=== PATIENT | male | born 1950 | race Two or more races ===

== ENCOUNTER 2018-04-27 07:51 | Inpatient (IN) | payer MEDICARE ==
[~2018-04-27] VITALS: Ht 170.2 cm; Wt 92.0 kg
[2018-04-27] MEDS ORDERED: ONDANSETRON 2MG/ML, 2ML ONE ×2 (08:27→17:44)
[2018-04-27] MEDS ORDERED: FAMOTIDINE 20 MG/2 ML ONE (08:27)
[2018-04-27] MEDS ORDERED: SODIUM CHLORIDE FLUSH 10ML SYR IVF ONE (08:30)
[2018-04-27] MEDS ORDERED: MAALOX/HYOSCYAMINE/LIDOCAINE 45 ML BTL ONE (08:30)
[2018-04-27] MEDS ORDERED: MAALOX/HYOSCYAMINE/LIDOCAINE 45 ML BTL PO ONE (08:30)
[2018-04-27] MEDS ORDERED: ONDANSETRON 2MG/ML, 2ML IVPush ONE (08:30)
[2018-04-27] MEDS ORDERED: FAMOTIDINE 20 MG/2 ML IVP ONE (08:30)
[2018-04-27 08:50] LABS: MICROSCOPIC NOT IND
[2018-04-27 08:53] LABS: BASOPHILS # (AUTO) 0.01 x10^3/uL (0-0.1); BASOPHILS % (AUTO) 0 % (0-1); EOSINOPHILS # (AUTO) 0.09 x10^3/uL (0-0.4); EOSINOPHILS % (AUTO) 1 % (1-7); LYMPHOCYTES # (AUTO) 1.97 x10^3/uL (1-3.4); LYMPHOCYTES % (AUTO) 13 % (22-44); MD NO; MEAN CORPUSCULAR HEMOGLOBIN 32.9 pg (27.5-34.5); MEAN CORPUSCULAR HGB CONC 34.1 g/dL (33.2-36.2); MEAN CORPUSCULAR VOLUME 96.4 fL (81-97); MEAN PLATELET VOLUME 9.1 fL (7.4-10.4); MONOCYTES # (AUTO) 0.51 x10^3/uL (0.2-0.8); MONOCYTES % (AUTO) 3 % (2-9); NEUTROPHILS # (AUTO) 12.57 x10^3/uL (1.8-6.8); NEUTROPHILS % (AUTO) 83 % (42-75); PLATELET COUNT 239 x10^3/uL (130-400); RED BLOOD COUNT 4.82 x10^6/uL (4.38-5.82); RED CELL DISTRIBUTION WIDTH 13.3 % (9.4-14.8)
[2018-04-27 08:54] LABS: CULTURE INDICATED? NO
[2018-04-27 08:58] LABS: ALANINE AMINOTRANSFERASE 58 U/L (12-78); ALBUMIN 3.6 g/dL (3.4-5.0); ANION GAP 10 mmol/L (5-15); CALCIUM 8.5 mg/dL (8.5-10.1); CHLORIDE 104 mmol/L (98-107); CREATININE 0.84 mg/dL (0.7-1.3)
[2018-04-27 09:00] LABS: ALKALINE PHOSPHATASE 83 U/L (45-117); BILIRUBIN,TOTAL 0.7 mg/dL (0.2-1.0); TOTAL PROTEIN 7.4 g/dL (6.4-8.2)
[2018-04-27 09:42] LABS: TROPONIN I < 0.015 ng/mL (0.000-0.045)
[2018-04-27] MEDS ORDERED: MORPHINE SULFATE 4 MG/ML, 1ML ONE (10:53)
[2018-04-27] MEDS ORDERED: MORPHINE SULFATE 4 MG/ML, 1ML IVPush PRN ×2 (11:00→12:30)
[2018-04-27] MEDS ORDERED: LOVA10TA PO (11:00)
[2018-04-27] MEDS ORDERED: DICL50TA2 PO (11:00)
[2018-04-27] MEDS ORDERED: CEFTRIAXONE 1,000 MG in SODIUM CHLORIDE 0.9% 50 ML IV ONE (11:00)
[2018-04-27] MEDS ORDERED: PANT40TA5 PO (11:00)
[2018-04-27] MEDS ORDERED: LISI5TAB7 PO (11:00)
[2018-04-27] MEDS ORDERED: CEFTRIAXONE PMX 1GM/50ML 50 ML ONE (11:09)
[2018-04-27] MEDS ORDERED: ENALAPRILAT 1.25 MG/ML, 2ML IVPush PRN (12:00)
[2018-04-27] MEDS ORDERED: LABETALOL 5MG/ML, 20ML IVPush PRN (12:00)
[2018-04-27 12:30] VITALS: BP 126/79
[2018-04-27] MEDS ORDERED: ONDANSETRON 2MG/ML, 2ML IVPush PRN ×2 (12:30→21:00)
[2018-04-27 12:39] LABS: HEMOGLOBIN A1C 5.5 % (4.2-6.3)
[2018-04-27] MEDS ORDERED: BUPIVACAINE/PF-EPI 0.5% 1:200K ONE (16:12)
[2018-04-27] MEDS ORDERED: ROCURONIUM 10MG/ML,5ML ONE (17:44)
[2018-04-27] MEDS ORDERED: CEFAZOLIN 1,000 MG ONE ×2 (17:44)
[2018-04-27] MEDS ORDERED: PROPOFOL 10 MG/ML, 20ML ONE (17:44)
[2018-04-27] MEDS ORDERED: FENTANYL PF 250 MCG/5ML ONE (17:44)
[2018-04-27] MEDS ORDERED: DEXAMETHASONE 4 MG/ML, 1ML ONE (17:44)
[2018-04-27] MEDS ORDERED: SUCCINYLCHOLINE 20 MG/ML, 10ML ONE (17:50)
[2018-04-27] MEDS ORDERED: PROMETHAZINE 25 MG/ML, 1ML IV PRN (18:00)
[2018-04-27] MEDS ORDERED: LABETALOL 5MG/ML, 20ML IV PRN (18:00)
[2018-04-27] MEDS ORDERED: ALBUTEROL SULFATE 2.5 MG/3 ML NPPB PRN (18:00)
[2018-04-27] MEDS ORDERED: ONDANSETRON 2MG/ML, 2ML IV PRN (18:00)
[2018-04-27] MEDS ORDERED: FENTANYL PF 100 MCG/2ML IV PRN (18:00)
[2018-04-27] MEDS ORDERED: hydrALAzine 20 MG/ML, 1ML IV PRN (18:00)
[2018-04-27] MEDS ORDERED: METOPROLOL 1 MG/ML, 5ML IV PRN (18:00)
[2018-04-27] MEDS ORDERED: OXYcodone 5 MG/5 ML ORAL.SOL UDC PO PRN (18:00)
[2018-04-27] MEDS ORDERED: ACETAMINOPHEN 325 MG TABLET PO PRN (18:00)
[2018-04-27] MEDS ORDERED: EPHEDRINE 50 MG/ML, 1ML IVPush PRN (18:00)
[2018-04-27] MEDS ORDERED: MEPERIDINE/PF 25MG/0.5ML IVPush PRN (18:00)
[2018-04-27] MEDS ORDERED: GLYCOPYRROLATE 0.2MG/1ML, 5ML ONE (18:41)
[2018-04-27] MEDS ORDERED: NEOSTIGMINE 1 MG/ML, 10ML ONE (18:41)
[2018-04-27] MEDS ORDERED: FENTANYL PF 100 MCG/2ML ONE (18:51)
[2018-04-27] MEDS ORDERED: HYDROmorphone 2 MG/ML, 1ML ONE (19:17)
[2018-04-27] MEDS ORDERED: OXYcodone 5 MG/5 ML ORAL.SOL UDC ONE (19:17)
[2018-04-27] MEDS: HYDROmorphone 1 MG/ML, 1ML IV PRN ×2 (19:30→19:43)
[2018-04-27] MEDS: LOVASTATIN 10 MG TABLET PO SCH (20:18)
[2018-04-27] MEDS: DICLOFENAC SODIUM 75 MG TABLET.DR PO SCH (20:18)
[2018-04-27] MEDS: LISINOPRIL 20 MG TABLET PO SCH (20:18)
[2018-04-27 20:19] VITALS: BP 132/88
[2018-04-27] MEDS ORDERED: HYDROcodone/APAP 5/325 TABLET PO PRN (20:30)
[2018-04-27] MEDS ORDERED: morphine SULFATE 10 MG/ML, 1ML IV PRN (21:00)
[2018-04-27] MEDS ORDERED: HYDROmorphone 1 MG/ML, 1ML IV PRN (21:00)
[2018-04-27] MEDS: CEFOTETAN PMX 1GM/50ML 50 ML IVPB SCH (21:14)
[2018-04-27] MEDS: POTASSIUM CHLORIDE 20 MEQ in LACTATED RINGERS 1,000 ML IV SCH (21:14)
[2018-04-27] MEDS ORDERED: HYDROmorphone 2 MG/ML, 1ML IV PRN (23:30)
[2018-04-28 01:12] VITALS: BP 99/62
[2018-04-28 04:28] LABS: BASOPHILS # (AUTO) 0.24 x10^3/uL (0-0.1); BASOPHILS % (AUTO) 2 % (0-1); EOSINOPHILS % (AUTO) 0 % (1-7); LYMPHOCYTES # (AUTO) 1.11 x10^3/uL (1-3.4); LYMPHOCYTES % (AUTO) 7 % (22-44); MD NO; MEAN CORPUSCULAR HEMOGLOBIN 33.3 pg (27.5-34.5); MEAN CORPUSCULAR HGB CONC 34.4 g/dL (33.2-36.2); MEAN CORPUSCULAR VOLUME 96.9 fL (81-97); MEAN PLATELET VOLUME 8.3 fL (7.4-10.4); MONOCYTES # (AUTO) 0.88 x10^3/uL (0.2-0.8); MONOCYTES % (AUTO) 6 % (2-9); NEUTROPHILS # (AUTO) 13.43 x10^3/uL (1.8-6.8); NEUTROPHILS % (AUTO) 86 % (42-75); PLATELET COUNT 210 x10^3/uL (130-400); RED BLOOD COUNT 4.25 x10^6/uL (4.38-5.82); RED CELL DISTRIBUTION WIDTH 13.3 % (9.4-14.8)
[2018-04-28 04:40] LABS: ALANINE AMINOTRANSFERASE 65 U/L (12-78); ANION GAP 8 mmol/L (5-15); CALCIUM 8.6 mg/dL (8.5-10.1); CHLORIDE 103 mmol/L (98-107)
[2018-04-28 04:42] LABS: ALKALINE PHOSPHATASE 64 U/L (45-117); BILIRUBIN,TOTAL 0.7 mg/dL (0.2-1.0); TOTAL PROTEIN 6.6 g/dL (6.4-8.2)
[2018-04-28] MEDS: OXYcodone/APAP 5/325MG TABLET PO PRN ×2 (04:43→21:05)
[2018-04-28] MEDS: POTASSIUM CHLORIDE 20 MEQ in LACTATED RINGERS 1,000 ML IV SCH ×2 (06:51→18:25)
[2018-04-28 07:37] VITALS: BP 93/56
[2018-04-28] MEDS: DICLOFENAC SODIUM 75 MG TABLET.DR PO SCH ×2 (08:44→19:36)
[2018-04-28] MEDS: PANTOPROZOLE 40MG TABLET PO SCH (08:44)
[2018-04-28] MEDS: ENOXAPARIN 40 MG/0.4 ML SQ SCH (08:45)
[2018-04-28] MEDS: CEFOTETAN PMX 1GM/50ML 50 ML IVPB SCH (09:21)
[2018-04-28] MEDS ORDERED: CEFTRIAXONE 1,000 MG in SODIUM CHLORIDE 0.9% 50 ML IV SCH (11:30)
[2018-04-28 13:44] VITALS: BP 86/45
[2018-04-28 13:50] VITALS: BP 91/53
[2018-04-28] MEDS ORDERED: 0.9 % SODIUM CHLORIDE 10 ML VIAL IV ONE (14:00)
[2018-04-28 15:10] VITALS: BP 99/64
[2018-04-28 19:24] VITALS: BP 120/70
[2018-04-28] MEDS: LOVASTATIN 10 MG TABLET PO SCH ×2 (19:27→19:35)
[2018-04-28] MEDS: LISINOPRIL 20 MG TABLET PO SCH (19:27)
[2018-04-29] MEDS: OXYcodone/APAP 5/325MG TABLET PO PRN ×2 (02:01→08:35)
[2018-04-29 02:03] VITALS: BP 102/64
[2018-04-29] MEDS: POTASSIUM CHLORIDE 20 MEQ in LACTATED RINGERS 1,000 ML IV SCH (05:19)
[2018-04-29 08:12] VITALS: BP 99/63
[2018-04-29] MEDS: DICLOFENAC SODIUM 75 MG TABLET.DR PO SCH (08:28)
[2018-04-29] MEDS: PANTOPROZOLE 40MG TABLET PO SCH (08:28)
[2018-04-29] MEDS: ENOXAPARIN 40 MG/0.4 ML SQ SCH (08:28)
[2018-04-29] MEDS ORDERED: DOCU-131 PO (09:17)
[2018-04-29] MEDS ORDERED: HYDR-3240 PO (09:17)
[2018-04-29 11:10] VITALS: BP 123/74
== END 2018-04-29 11:52 | disposition home or self-care (01) | DRG 415 ==
LOC: ED 09:00 → EDIP 11:13 → 3NW 12:29 → DCLOUNGE 04-29 11:30
PROVIDERS: ADMIT Internal Medicine; ATTEND Internal Medicine
PROC: 0FJ44ZZ Inspection of Gallbladder, Percutaneous Endoscopic Approach (ICD-10-PCS; 2018-04-27)
PROC: 0FT40ZZ Resection of Gallbladder, Open Approach (ICD-10-PCS; principal; 2018-04-27 17:15)
DX: K81.0 Acute cholecystitis (principal); K82.1 Hydrops of gallbladder; E66.9 Obesity, unspecified; E78.00 Pure hypercholesterolemia, unspecified; I10 Essential (primary) hypertension; J44.9 Chronic obstructive pulmonary disease, unspecified; K21.9 Gastro-esophageal reflux disease without esophagitis; F17.210 Nicotine dependence, cigarettes, uncomplicated; K66.0 Peritoneal adhesions (postprocedural) (postinfection); K76.0 Fatty (change of) liver, not elsewhere classified; M54.9 Dorsalgia, unspecified; R73.9 Hyperglycemia, unspecified; Z82.49 Family history of ischemic heart disease and other diseases of the circulatory system; Z87.81 Personal history of (healed) traumatic fracture; Z53.31 Laparoscopic surgical procedure converted to open procedure; Z68.31 Body mass index [BMI] 31.0-31.9, adult; R06.03 Acute respiratory distress
CPT/HCPCS: 36415; 74018; 74022; 76700; 80053; 81003; 83036; 83605; 83690; 84484; 85025; 88304; 93005; 96365; 96375; 99285; C1729; J0690; J0696; J1100; J1170; J1650; J2405; J2704; J2710; J3010; J3480; J3490; J0330; J7120; S0028; S0074

== ENCOUNTER → 2019-04-04 | Outpatient (CLI) | payer MEDICARE ==
[~2019-04-04] MED LIST: DICL50TA2 PO; DOCU-131 PO; HYDR-3240 PO; LISI5TAB7 PO; LOVA10TA PO; PANT40TA5 PO
[2019-04-04 17:58] LABS: ALBUMIN 4.2 g/dL (3.4-5.0); ANION GAP 8 mmol/L (5-15); CALCIUM 9.1 mg/dL (8.5-10.1); CHLORIDE 107 mmol/L (98-107)
[2019-04-04 18:01] LABS: ALANINE AMINOTRANSFERASE 58 U/L (12-78); ALKALINE PHOSPHATASE 82 U/L (45-117); BILIRUBIN,TOTAL 0.7 mg/dL (0.2-1.0); CHOL/HDL RATIO 3.5; CHOLESTEROL, TOTAL 173 mg/dL (140-239); CREATININE 1.09 mg/dL (0.7-1.3); HDL CHOL % 29 % (26-37); HDL CHOLESTEROL (DIRECT) 50 mg/dL (40-60); LDL CHOLESTEROL,CALCULATED 93 mg/dL (54-169); LDL/HDL RATIO 1.9 (0.5-3.0); TOTAL PROTEIN 7.6 g/dL (6.4-8.2); TRIGLYCERIDES 149 mg/dL (50-200); VLDL CHOLESTEROL 30 mg/dL (0-25)
== END | disposition home or self-care (01) ==
LOC: CFH 13:03
PROVIDERS: ATTEND Family Medicine
DX: E74.39 Other disorders of intestinal carbohydrate absorption (principal); E78.5 Hyperlipidemia, unspecified
CPT/HCPCS: 36415; 80053; 80061

== ENCOUNTER → 2020-06-18 | Outpatient (CLI) | payer MEDICARE ==
[~2020-06-18] MED LIST changes: -PANT40TA5 PO; +PANT40TA6 PO
[2020-06-18 12:49] LABS: MEAN CORPUSCULAR HEMOGLOBIN 32.7 pg (27.5-34.5); MEAN CORPUSCULAR HGB CONC 33.2 g/dL (33.2-36.2); MEAN CORPUSCULAR VOLUME 98.5 fL (81-97); MEAN PLATELET VOLUME 9.6 fL (7.4-10.4); PLATELET COUNT 238 x10^3/uL (130-400); RED BLOOD COUNT 4.63 x10^6/uL (4.38-5.82); RED CELL DISTRIBUTION WIDTH 12.5 % (9.4-14.8)
[2020-06-18 13:01] LABS: CHLORIDE 108 mmol/L (98-107)
[2020-06-18 13:22] LABS: ALANINE AMINOTRANSFERASE 40 U/L (12-78); ALBUMIN 3.9 g/dL (3.4-5.0); ALKALINE PHOSPHATASE 86 U/L (45-117); ANION GAP 9 mmol/L (5-15); BILIRUBIN,TOTAL 0.5 mg/dL (0.2-1.0); CHOL/HDL RATIO 4.4; CHOLESTEROL, TOTAL 158 mg/dL (140-239); CREATININE 1.25 mg/dL (0.7-1.3); HDL CHOL % 23 % (26-37); HDL CHOLESTEROL (DIRECT) 36 mg/dL (40-60); LDL CHOLESTEROL,CALCULATED 92 mg/dL (54-169); LDL/HDL RATIO 2.6 (0.5-3.0); PSA SCREEN 0.52 ng/mL (0.00-4.00); TOTAL PROTEIN 7.5 g/dL (6.4-8.2); TRIGLYCERIDES 150 mg/dL (50-200); VLDL CHOLESTEROL 30 mg/dL (0-25)
== END | disposition home or self-care (01) ==
LOC: CFH 11:35
PROVIDERS: ATTEND Family Medicine
DX: Z12.5 Encounter for screening for malignant neoplasm of prostate (principal); K21.9 Gastro-esophageal reflux disease without esophagitis; R73.01 Impaired fasting glucose; E78.9 Disorder of lipoprotein metabolism, unspecified; I12.9 Hypertensive chronic kidney disease with stage 1 through stage 4 chronic kidney disease, or unspecified chronic kidney disease; N18.2 Chronic kidney disease, stage 2 (mild)
CPT/HCPCS: 36415; 80053; 80061; 82043; 82570; 83036; 85027; G0103

== ENCOUNTER 2021-06-03 10:36 | Outpatient (CLI) | payer MEDICARE | END 2021-06-03 23:59 | disposition home or self-care (01) | LOC: LAB 10:36 | PROVIDERS: ATTEND Family Medicine | DX: Z12.5 Encounter for screening for malignant neoplasm of prostate (principal); I12.9 Hypertensive chronic kidney disease with stage 1 through stage 4 chronic kidney disease, or unspecified chronic kidney disease; K21.9 Gastro-esophageal reflux disease without esophagitis; R73.01 Impaired fasting glucose; E78.2 Mixed hyperlipidemia; N18.30 Chronic kidney disease, stage 3 unspecified ==